=== PATIENT | male | born 1990 | race Caucasian/White ===

== ENCOUNTER 2021-07-26 14:19 | Inpatient (IN) | payer OTHER ==
[2021-07-26 16:44] VITALS: BMI 25.4
[2021-07-26] MEDS ORDERED: MAGNESIUM HYDROX 2400MG/30ML ORAL SUSPENSION 30 ML CUP PO PRN (18:19)
[2021-07-26] MEDS ORDERED: MAGNESIUM CITRATE 300 ML BOTTLE PO PRN (18:19)
[2021-07-26] MEDS ORDERED: ONDANSETRON *ODT* 4 MG TABLET SL PRN (18:19)
[2021-07-26] MEDS ORDERED: ACETAMINOPHEN 325 MG TABLET (FP) PO PRN ×2 (18:19)
[2021-07-26] MEDS ORDERED: BISMUTH SUBSALICYLATE 524 MG/30 ML PO PRN (18:19)
[2021-07-26] MEDS ORDERED: methaDONE HCL 10 MG TABLET (FOR DETOX USE ONLY) PO ONE (18:19)
[2021-07-26] MEDS ORDERED: MAG HYDROX/AL HYDROX/SIMETH 30 ML UNIT-DOSE CUP PO PRN (18:19)
[2021-07-26] MEDS ORDERED: MENTHOL/PHENOL 1 EACH UD MM PRN (18:19)
[2021-07-26] MEDS: METHOCARBAMOL 500 MG TABLET PO PRN (19:25)
[2021-07-26] MEDS: hydrOXYzine PAMOATE 25 MG CAPSULE (FP) PO PRN (19:32)
[2021-07-26] MEDS: MELATONIN 5 MG TABLETS PO SCH (22:04)
[2021-07-26] MEDS: THIAMINE HCL 100 MG TABLET (FP) PO SCH (22:04)
[2021-07-26] MEDS: NICOTINE POLACRILEX 2 MG GUM BUC PRN (22:58)
[2021-07-27] MEDS: hydrOXYzine PAMOATE 25 MG CAPSULE (FP) PO PRN ×2 (07:52→19:46)
[2021-07-27] MEDS ORDERED: methaDONE HCL 10 MG TABLET (FOR DETOX USE ONLY) ONE (08:51)
[2021-07-27] MEDS: PRENATAL VITAMINS W/ FOLIC ACID TABLET (FP) PO SCH (10:08)
[2021-07-27] MEDS: METHOCARBAMOL 500 MG TABLET PO PRN (10:09)
[2021-07-27] MEDS: LIDOCAINE 5% TOPICAL PATCH TP SCH (10:43)
[2021-07-27 10:48] LABS: HEMATOCRIT 35.8 % (35.4-49); HEMOGLOBIN 11.7 GM/dL (11.7-16.9); MCH 27.9 pg (25.7-33.7); MCHC 32.8 g/dl (32.0-35.9); MEAN PLT VOLUME 9.2 fl (7.5-11.1); PLATELET COUNT 219 10^3/uL (134-434); RBC 4.21 M/mm3 (4.00-5.60); RDW 14.8 % (11.9-15.9); WHITE BLOOD COUNT 4.6 K/mm3 (4.0-10.0)
[2021-07-27 10:50] LABS: BLOOD UREA NITROGEN 10.2 mg/dL (7-18); CALCIUM 9.1 mg/dL (8.5-10.1)
[2021-07-27 10:51] LABS: ALBUMIN 3.6 g/dl (3.4-5.0)
[2021-07-27 10:55] LABS: BILIRUBIN,TOTAL 0.2 mg/dL (0.2-1)
[2021-07-27 10:58] LABS: CREATININE 0.6 mg/dL (0.55-1.3)
[2021-07-27 11:46] LABS: HIV INTERPRETATION NEGATIVE (NEGATIVE)
[2021-07-27] MEDS: cloNIDine HCL 0.1 MG TABLET PO PRN (19:46)
[2021-07-27] MEDS: NICOTINE 10 MG CARTRIDGE (INHALER) IH PRN (19:47)
[2021-07-27] MEDS: LIDOCAINE PATCH REMOVAL MC SCH (22:20)
[2021-07-27] MEDS: THIAMINE HCL 100 MG TABLET (FP) PO SCH (22:20)
[2021-07-27] MEDS: MELATONIN 5 MG TABLETS PO SCH (22:20)
[2021-07-28] MEDS: cloNIDine HCL 0.1 MG TABLET PO PRN (07:03)
[2021-07-28] MEDS ORDERED: methaDONE HCL 10 MG TABLET (FOR DETOX USE ONLY) PO ONE (10:00)
[2021-07-28] MEDS: METHOCARBAMOL 500 MG TABLET PO PRN (10:18)
[2021-07-28] MEDS: PRENATAL VITAMINS W/ FOLIC ACID TABLET (FP) PO SCH (10:18)
[2021-07-28] MEDS: LIDOCAINE 5% TOPICAL PATCH TP SCH (10:20)
[2021-07-28] MEDS: NICOTINE 10 MG CARTRIDGE (INHALER) IH PRN (11:21)
[2021-07-28] MEDS: diazePAM 5 MG TABLET PO PRN ×2 (12:56→18:44)
[2021-07-28] MEDS: hydrOXYzine PAMOATE 25 MG CAPSULE (FP) PO PRN (18:44)
[2021-07-28] MEDS: LIDOCAINE PATCH REMOVAL MC SCH (22:23)
[2021-07-28] MEDS: SUVOREXANT 10 MG TABLET PO PRN (22:27)
[2021-07-28] MEDS: IBUPROFEN 400 MG TABLET (FP) PO PRN (22:28)
[2021-07-28] MEDS: THIAMINE HCL 100 MG TABLET (FP) PO SCH (22:28)
[2021-07-29] MEDS: hydrOXYzine PAMOATE 25 MG CAPSULE (FP) PO PRN ×2 (05:38→22:35)
[2021-07-29] MEDS: METHOCARBAMOL 500 MG TABLET PO PRN ×2 (05:39→22:35)
[2021-07-29] MEDS ORDERED: methaDONE HCL 10 MG TABLET (FOR DETOX USE ONLY) ONE (08:33)
[2021-07-29] MEDS: LIDOCAINE 5% TOPICAL PATCH TP SCH (10:34)
[2021-07-29] MEDS: PRENATAL VITAMINS W/ FOLIC ACID TABLET (FP) PO SCH (10:34)
[2021-07-29] MEDS: THIAMINE HCL 100 MG TABLET (FP) PO SCH (22:33)
[2021-07-29] MEDS: SUVOREXANT 10 MG TABLET PO PRN (22:35)
[2021-07-29] MEDS: LIDOCAINE PATCH REMOVAL MC SCH (22:45)
[2021-07-30] MEDS: METHOCARBAMOL 500 MG TABLET PO PRN (04:39)
[2021-07-30] MEDS: hydrOXYzine PAMOATE 25 MG CAPSULE (FP) PO PRN (04:39)
[2021-07-30] MEDS: IBUPROFEN 400 MG TABLET (FP) PO PRN (05:49)
[2021-07-30] MEDS: NICOTINE POLACRILEX 2 MG GUM BUC PRN (05:52)
[2021-07-30] MEDS: LIDOCAINE 5% TOPICAL PATCH TP SCH (09:35)
[2021-07-30] MEDS: PRENATAL VITAMINS W/ FOLIC ACID TABLET (FP) PO SCH (09:36)
[2021-07-30] MEDS ORDERED: methaDONE HCL 10 MG TABLET (FOR DETOX USE ONLY) PO ONE (10:00)
[2021-07-30] MEDS ORDERED: LOPERAMIDE HCL 2 MG CAPSULE PO ONE (11:29)
[2021-07-30] MEDS ORDERED: DICYCLOMINE HCL 10 MG CAPSULE PO ONE (11:30)
[2021-07-30] MEDS ORDERED: TRIMETHOBENZAMIDE HCL 200MG/2ML INJ IM PRN (11:32)
[2021-07-30 14:19] VITALS: BP 112/63; PULSE 65; TEMP 98.4
== END 2021-07-30 15:20 | disposition left against medical advice (07) | DRG 770 ==
LOC: YASAS 14:19 → Y6N 18:03
PROVIDERS: ADMIT Allergy & Immunology; ATTEND Allergy & Immunology
PROC: HZ2ZZZZ Detoxification Services for Substance Abuse Treatment (ICD-10-PCS; principal; 2021-07-26)
DX: F11.23 Opioid dependence with withdrawal (principal); F11.220 Opioid dependence with intoxication, uncomplicated; F13.20 Sedative, hypnotic or anxiolytic dependence, uncomplicated; F12.20 Cannabis dependence, uncomplicated; F17.210 Nicotine dependence, cigarettes, uncomplicated; F19.282 Other psychoactive substance dependence with psychoactive substance-induced sleep disorder; F19.280 Other psychoactive substance dependence with psychoactive substance-induced anxiety disorder; J45.909 Unspecified asthma, uncomplicated; M19.90 Unspecified osteoarthritis, unspecified site; M54.59 Other low back pain; M25.572 Pain in left ankle and joints of left foot; M25.571 Pain in right ankle and joints of right foot; G89.29 Other chronic pain; M41.9 Scoliosis, unspecified; L90.5 Scar conditions and fibrosis of skin
CPT/HCPCS: 36415; 80053; 85027; 86780; 87389; 93005; 93010; C9803; J0735; U0003; U0005